=== PATIENT | female | born 1945 | race Caucasian/White ===

== ENCOUNTER 2020-08-26 08:05 | Day surgery (SDC) | payer MEDICARE, OTHER ==
[~2020-08-26] VITALS: Ht 157.5 cm; Wt 76.1 kg
[~2020-08-26 08:05] MED LIST: AMLO5; ATEN100; LOSARTAN POTAS100 MG; PRAV20
== END 2020-08-26 09:58 | disposition home or self-care (01) ==
LOC: ORSCSDS 08:05
PROVIDERS: Surgery
PROC: 0DBK8ZX Excision of Ascending Colon, Via Natural or Artificial Opening Endoscopic, Diagnostic (ICD-10-PCS; principal; 2020-08-26 09:15)
DX: Z12.11 Encounter for screening for malignant neoplasm of colon (principal); D12.2 Benign neoplasm of ascending colon; Z86.010 Personal history of colon polyps; K57.30 Diverticulosis of large intestine without perforation or abscess without bleeding; I10 Essential (primary) hypertension; N18.30 Chronic kidney disease, stage 3 unspecified; Z79.899 Other long term (current) drug therapy
CPT/HCPCS: 88305; J2704; J7120